=== PATIENT | female | born 1960 | race Hispanic/Latino ===

== ENCOUNTER 2020-03-30 16:51 | Emergency (ER) | payer SELFPAY ==
--- OUTSIDE RECORDS SUMMARY | 2020-03-30 16:53 | XMS REPORT | Summary of Care ---
:1960 Author Organization [facility] - Health Address [address] [place] [address] Care Team Providers Name Role Phone Fela Burkett MD Primary Care Provider Reason for Visit Reason Comments Notification health maintenance Encounter Details Date Type Department Care Team Description 06/21/2019 Telephone [facility] Wellness Fela Burkett Notification (health and Outreach Grace, MD maintenance) [address] [facility] [address] [place], [place] [phone] Allergies Active Allergy Reactions Severity Noted Date Comments Iodine Rash 02/06/2016 documented as of this encounter (statuses as of 06/21/2019) Medications Medication Sig Dispensed Refills Start Date End Date Status predniSONE 20 mg Take 2 tablets by 10 tablet 0 07/30/2017 Active tabletIndications: mouth daily. Contact dermatitis, unspecified contact dermatitis type, unspecified trigger fexofenadine 180 mg Take 1 tablet by 20 tablet 1 07/06/2018 Active tablet mouth 2 (two) times daily. triamcinolone acetonide Apply to area(s) 15 g 0 07/06/20 18 Active 0.1 % creamIndications: 2 (two) times Contact dermatitis, daily. unspecified contact dermatitis type, unspecified trigger ondansetron (ZOFRAN) 4 Take 1 tablet by 12 tablet 0 01/03/2019 Active mg tabletIndications: mouth every 8 Epigastric pain, Nausea (eight) hours as and vomiting in adult needed for Nausea and Vomiting (N/V). dicyclomine (BENTYL) 20 Take 1 tablet by 20 tablet 0 9 Active mg tabletIndications: mouth 4 (four) Epigastric pain, Nausea times daily. and vomiting in adult clotrimazole-betamethas Apply to area(s) 45 g 1 03/09/20 19 Active one (LOTRISONE) 2 (two) times creamIndications: daily. Vulvar itching documented as of this encounter (statuses as of 06/21/2019) Active Problems Problem Noted Date Obesity (BMI 30-39.9) 03/09/2019 Hypertriglyceridemia 08/25/2016 Vitamin D deficiency 08/25/2016 Low vitamin B12 level 08/25/2016 Tooth pain 08/25/2016 Varicose vein of leg 08/25/2016 Epigastric pain 08/25/2016 documented as of this encounter (statuses as of 06/21/2019) Resolved Problems Problem Noted Date Resolved Date Anal warts 02/06/2016 08/25/2016 Genital warts 02/06/2016 08/25/2016 Well woman exam with routine gynecological exam 02/06/2016 08/25/2016 Need for Tdap vaccination 02/06/2016 08/25/2016 documented as of this encounter (statuses as of 06/21/2019) Immunizations Name Administration Dates Next Due Influenza Virus Vaccine Quad IM 3+ YRS 10/23/2016 Tdap 02/06/2016 documented as of this encounter Social History Tobacco Use Types Packs/Day Years Used Date Never Smoker Smokeless Tobacco: Never Used Alcohol Use Drinks/Week oz/Week Comments No 0 Standard drinks or equivalent 0.0 Occasional Sex Assigned at Date Recorded Not on file Job Start Date Occupation Industry Not on file Not on file Not on file Travel History Travel Start Travel End No recent travel history available. documented as of this encounter Last Filed Vital Signs Not on filedocumented in this encounter Plan of Treatment Health Maintenance Due Date Last Done Comments HEPATITIS C (HCV) SCREEN 1960 Zoster Recombinant Vaccine 2011 (SHINGRIX) (1 of 2) PAP SMEAR 02/05/2019 02/06/2016, 02/06/2016 INFLUENZA VACCINE 07/18/2019 10/23/2016 MAMMOGRAM 02/16/2020 02/15/2019, 12/10/2016, 05/01/2016 DTaP,Tdap,and Td Vaccines (2 02/05/2026 02/06/2016 - Td) COLONOSCOPY 05/14/2026 05/14/2016 PNEUMOCOCCAL 0-64 YEARS Aged Out No longe r eligible based COMBINED SERIES on patient's age to complete this to pic documented as of this encounter Results Not on filedocumented in this encounter
--- OUTSIDE RECORDS SUMMARY | 2020-03-30 16:54 | XMS REPORT | Summary of Care ---
:1960 Author Organization [facility] Address [address] [place] [address] Care Team Providers Name Role Phone Fela Burkett MD Primary Care Provider [phone] Reason for Visit Reason Comments Notification Encounter Details Date Type Department Care Team Description 02/03/2020 Telephone [facility] Orthopaedic Obie Pierson MD Notification Surgery- [place] [address] [facility], [place] [address] [place], [place] [phone] Allergies Active Allergy Reactions Severity Noted Date Comments Iodine Rash 02/06/2016 documented as of this encounter (statuses as of 02/04/2020) Medications Medication Sig Dispensed Refills Start Date [...] as of this encounter (statuses as of 02/04/2020) Active Problems Problem Noted Date Obesity (BMI 30-39.9) 03/09/2019 Hypertriglyceridemia 08/25/2016 Vitamin D deficiency 08/25/2016 Low vitamin B12 level 08/25/2016 Tooth pain 08/25/2016 Varicose vein of leg 08/25/2016 Epigastric pain 08/25/2016 documented as of this encounter (statuses as of 02/04/2020) Resolved Problems Problem Noted Date Resolved Date Anal warts 02/06/2016 08/25/2016 Genital warts 02/06/2016 08/25/2016 Well woman exam with routine gynecological exam 02/06/2016 08/25/2016 Need for Tdap vaccination 02/06/2016 08/25/2016 documented as of this encounter (statuses as of 02/04/2020) Immunizations Name Administration Dates Next Due Influenza [...] PAP SMEAR 02/05/2019 02/06/2016, 02/06/2016 INFLUENZA VACCINE (#1) 2019 10/23/2016 Breast Cancer Screening 02/16/2020 02/15/2019, (MAMMOGRAM) 12/10/2016, 05/01/2016 DTaP,Tdap,and Td Vaccines (2 02/05/2026 02/06/2016 - Td) COLONOSCOPY 05/14/2026 05/14/2016 PNEUMOCOCCAL 0-64 YEARS Aged Out No longe r eligible based COMBINED SERIES on patient's age to complete this to pic documented as of this encounter Results Not on filedocumented in this encounter
--- OUTSIDE RECORDS SUMMARY | 2020-03-30 16:54 | XMS REPORT | Summary of Care ---
:1960 Author Organization [facility] Address [address] [place] [address] Care Team Providers Name Role Phone Fela Burkett MD Primary Care Provider [phone] Reason for Visit Reason Comments Notification Encounter Details Date Type Department Care Team Description 02/03/2020 Telephone [facility] Orthopaedic Obie Pierson MD Notification Surgery- [place] [address] [facility], [place] [address] [place], [place] [phone] Allergies Active Allergy Reactions Severity Noted Date [...]
--- OUTSIDE RECORDS SUMMARY | 2020-03-30 16:54 | XMS REPORT ---
:1960 Author Organization [facility] t Address [address] [place] [address] Care Team Providers Name Role Phone Lashonda Pierson MD Attending Clinician Payers Payer Name Policy Type Policy Number Effective Date Expiration Date S ource Problems This patient has no known problems. Allergies, Adverse Reactions, Alerts This patient has no known allergies or adverse reactions. Medications This patient has no known medications. Procedures This patient has no known procedures. Encounters Start End Encounter Admission Attending Care Care Encounter Source Date/Time Date/Time Type Type Clinicians Facility Department ID 2020-02-03 2020-02-03 Telephone DANIEL Pierson [id number] 00:00:00 00:00:00 [facility] [id number] Surgical [id number] Specialti [id number] [address] Results This patient has no known results.
--- OUTSIDE RECORDS SUMMARY | 2020-03-30 16:54 | XMS REPORT | Summary of Care ---
:1960 Author Organization [facility] - [facility] Address [address] [place] [address] Care Team Providers Name Role Phone Fela Burkett MD Primary Care Provider [phone] Reason for Visit Reason Comments Rx Concern/Question Encounter Details Date Type Department Care Team Description 06/21/[address] [facility] Pediatric Sruthi Burkett Rx Concern/Question and Adult Primary Care- [place] [address] [address] [address] [place] [address] [place] [address] [phone] Allergies Active Allergy Reactions Severity Noted Date Comments Iodine Rash 02/06/2016 documented as of this encounter (statuses as of 06/23/2019) Medications Medication Sig Dispensed Refills Start Date [...] as of this encounter (statuses as of 06/23/2019) Active Problems Problem Noted Date Obesity (BMI 30-39.9) 03/09/2019 Hypertriglyceridemia 08/25/2016 Vitamin D deficiency 08/25/2016 Low vitamin B12 level 08/25/2016 Tooth pain 08/25/2016 Varicose vein of leg 08/25/2016 Epigastric pain 08/25/2016 documented as of this encounter (statuses as of 06/23/2019) Resolved Problems Problem Noted Date Resolved Date Anal warts 02/06/2016 08/25/2016 Genital warts 02/06/2016 08/25/2016 Well woman exam with routine gynecological exam 02/06/2016 08/25/2016 Need for Tdap vaccination 02/06/2016 08/25/2016 documented as of this encounter (statuses as of 06/23/2019) Immunizations Name Administration Dates Next Due Influenza [...] filedocumented in this encounter Plan of Treatment Name Type Priority Associated Diagnoses Order S chedule HCV ANTIBODY LAB Routine Routine general medical Expe cted: 06/23/2019, examination at a health care Expires: 10/23/2019 facility Health Maintenance Due Date Last Done Comments [...] on patient's age to complete this to [facility] documented as of this encounter Results Not on filedocumented in this encounter Visit Diagnoses Diagnosis Routine general medical examination at a health care facility - Primary documented in this encounter
[2020-03-30] MEDS ORDERED: NA CHLORIDE 0.9% 1,000 ML ONE (18:13)
[2020-03-30 18:19] LABS: Urine Blood TRACE (NEG); Urine Glucose NEGATIVE (NEG); Urine Protein NEGATIVE (NEG); Urine Specific Gravity 1.015 (1.005-1.030)
[2020-03-30 18:24] LABS: Absolute Lymphocytes (CBC) 2.9 K/uL (0.7-4.9); Basophils % 1.9 % (0-1.3); Hematocrit 36.6 % (36.0-45.0); Lymphocytes % 31.3 % (15.3-44.8); MPV 8.6 fL (7.6-11.3); RBC Red Blood Cell Count 3.88 M/uL (3.86-4.86)
[2020-03-30 18:40] LABS: ALT/SGPT 20 U/L (12-78); AST/SGOT 13 U/L (15-37); Albumin 3.7 g/dL (3.4-5.0); Alkaline Phosphatase 94 U/L (45-117); BUN Blood Urea Nitrogen 18 mg/dL (7-18); Bicarbonate 31 mmol/L (21-32); Bilirubin Direct < 0.1 mg/dL (0-0.2); Glucose Level 97 mg/dL (74-106); Lipase 161 U/L (73-393); Potassium 3.3 mmol/L (3.5-5.1); Protein, Total 7.8 g/dL (6.4-8.2); Sodium Level 140 mmol/L (136-145)
--- NOTE | 2020-03-30 18:52 | RAD REPORT ---
EXAM DESCRIPTION: CT - Stone Protocol - 03/30/2020 6:30 pm CLINICAL HISTORY: Abdominal pain. COMPARISON: 2011 TECHNIQUE: Computed axial tomography of the abdomen pelvis was obtained without oral or IV contrast. Lack of IV and oral contrast limits evaluation of solid organs, bowel, appendix, and vessels. Sandoval l reformatted images were obtained and reviewed. All CT scans are performed using dose optimization technique as appropriate and may include automated exposure control or mA/KV adjustment according to patient size. FINDINGS: A renal calculus is not seen. An ureteral calculus is not noted. A bladder calculus is not present. Sub centimeter lesion within the liver is too small to characterize by CT criteria. Spleen, pancreas and adrenals appear grossly normal There is no evidence of diverticulitis. Slight anterior subluxation L4 on L5. Small hiatal hernia IMPRESSION: Negative for a genitourinary calculus
[2020-03-30 18:55] LABS: Bilirubin Total < 0.1 mg/dL (0.2-1.0)
[2020-03-30] MEDS ORDERED: KETOROLAC 30 MG/ML INJ ONE (18:59)
--- NOTE | 2020-03-30 19:22 | EDPHYS ---
Physician Documentation [facility] Name: Edith Lees Age: 59 yrs Sex: Female : 1960 Arrival Date: 03/30/2020 Time: 16:55 Bed 15 Private MD: ED Physician Tim Chaudhari HPI: 03/30 17:58 This 59 yrs old Female presents to ER via Ambulatory with complaints of cp Abdominal Pain. 17:58 The patient presents with abdominal pain left side of abdomen and left flank. Onset: cp The symptoms/episode began/occurred 5 day(s) ago. 17:58 Associated signs and symptoms: Pertinent positives: constipation, dysuria, Pertinent cp negatives: blood in stools, diarrhea, fever, vomiting. Historical: - Allergies: 17:02 Iodine; ll1 17:02 "steroids"; ll1 - PMHx: 17:02 UTI; kidney stone; ll1 - PSHx: 17:02 breast reduction; ll1 - Immunization history:: Flu vaccine is not up to date. - Social history:: Patient/guardian denies using alcohol, street drugs, tobacco products. ROS: 18:05 Constitutional: Negative for body aches, chills, fever, poor PO intake. cp 18:05 Eyes: Negative for injury, pain, redness, and discharge. cp 18:05 Cardiovascular: Negative for chest pain. 18:05 Respiratory: Negative for cough, shortness of breath, wheezing. 18:05 Abdomen/GI: Positive for abdominal pain, of the left lower quadrant, Negative for vomiting, diarrhea, constipation. 18:05 : Negative for urinary symptoms. 18:05 Neuro: Negative for altered mental status, headache, weakness. 18:05 All other systems are negative. Exam: 18:10 Constitutional: The patient appears in no acute distress, alert, awake, non-toxic, well cp developed, well nourished. 18:10 Head/Face: Normocephalic, atraumatic. cp 18:10 Eyes: Periorbital structures: appear normal, Conjunctiva: normal, no exudate, no injection, Sclera: no appreciated abnormality, Lids and lashes: appear normal, bilaterally. 18:10 ENT: External ear(s): are unremarkable, Nose: is normal, Mouth: Lips: moist, Oral mucosa: pink and intact, moist, Posterior pharynx: is normal, airway is patent. 18:10 Chest/axilla: Inspection: normal, Palpation: is normal, no crepitus, no tenderness. 18:10 Cardiovascular: Rate: normal, Rhythm: regular. 18:10 Respiratory: the patient does not display signs of respiratory distress, Respirations: normal, no use of accessory muscles, no retractions, labored breathing, is not present, Breath sounds: are clear throughout, no decreased breath sounds. 18:10 Abdomen/GI: Inspection: abdomen appears normal, Bowel sounds: active, all quadrants, Palpation: soft, in all quadrants, moderate abdominal tenderness, in the left lower quadrant, rebound tenderness, is not appreciated, voluntary guarding, is not appreciated, involuntary guarding, is not appreciated. 18:10 Back: CVA tenderness, is absent. 18:10 Skin: no rash present. Vital Signs: 16:59 BP 114 / 72; Pulse 83; Resp 16; Temp 99.2; Pulse Ox 99% ; Weight 73.94 kg; Height 5 ft. ll1 3 in. (160.02 cm); Pain 8/10; 18:18 BP 118 / 60; Pulse 62; Resp 16; Temp 98.2(TE); Pulse Ox 99% on R/A; mh5 16:59 Body Mass Index 28.87 (73.94 kg, 160.02 cm) ll1 MDM: 17:45 Patient medically screened. damir 18:00 Differential diagnosis: diverticulitis, non-specific abd pain, Ureterolithiasis, cp urinary tract infection. 19:20 Data reviewed: vital signs, nurses notes, lab test result(s), radiologic studies, CT cp scan. 19:20 Counseling: I had a detailed discussion with the patient and/or guardian regarding: the cp historical points, exam findings, and any diagnostic results supporting the discharge/admit diagnosis, lab results, radiology results, to return to the emergency department if symptoms worsen or persist or if there are any questions or concerns that arise at home. Response to treatment: the patient's symptoms have markedly improved after treatment, and as a result, I will discharge patient. Special discussion: Based on the patient's Hx, exam, and Dx evaluation, there is no indication for emergent surgery or inpatient Tx. It is understood by the patient/guardian that if the Sx's persist or worsen they need to return immediately for re-evaluation. 03/30 17:52 Order name: Basic Metabolic Panel; Complete Time: 18:56 cp 03/30 18:56 Interpretation: Normal except: K 3.3; GFR 61. cp 03/30 17:52 Order name: CBC with Diff; Complete Time: 18:38 cp 03/30 18:38 Interpretation: Normal except: BASO% 1.9. cp 03/30 17:52 Order name: Hepatic Function; Complete Time: 18:56 cp 03/30 18:57 Interpretation: Normal except: AST 13; BILIT < 0.1; GLOB 4.1; A/G 0.9. cp 03/30 17:52 Order name: Lipase; Complete Time: 18:56 cp 03/30 17:52 Order name: Urine Microscopic Only; Complete Time: 19:48 cp 03/30 19:50 Interpretation: Normal except: URBC 5-10. cp 03/30 18:15 Order name: Urine Dipstick--Ancillary (enter results); Complete Time: 18:38 bd 03/30 18:38 Interpretation: Normal except: UBLD TRACE. cp 03/30 17:52 Order name: IV Saline Lock; Complete Time: 18:18 cp 03/30 17:52 Order name: Labs collected and sent; Complete Time: 19:19 cp 03/30 17:52 Order name: CT Stone Protocol; Complete Time: 18:56 cp 03/30 17:52 Order name: Urine Dipstick-Ancillary (obtain specimen); Complete Time: 18:17 cp 03/30 17:52 Order name: Urine Test (obtain specimen); Complete Time: 19:19 cp Administered Medications: 18:17 Drug: NS 0.9% 1000 ml Route: IV; Rate: 1 bolus; Site: right antecubital; hb 19:44 Follow up: IV Status: Completed infusion ah 18:50 Drug: TORadol - Ketorolac 15 mg Route: IVP; Site: right antecubital; ah 19:29 Drug: Potassium Effervescent Tablet 25 mEq Route: PO; ah 19:44 Follow up: Response: No adverse reaction ah 19:29 Drug: Bentyl 20 mg Route: PO; ah 19:44 Follow up: Response: No adverse reaction Disposition: 03/31 05:40 Co-signature as Attending Physician, Tim Chaudhari MD I agree with the assessment and damir plan of care. Disposition: 03/30/20 19:21 Discharged to Home. Impression: Unspecified abdominal pain. - Condition is Stable. - Discharge Instructions: Abdominal Pain, Adult, Constipation, Adult. - Prescriptions for Bentyl 20 mg Oral Tablet - take 2 tablets by ORAL route every 6 hours As needed; 30 tablet. Miralax 17 gram/dose Oral - take 1 packet by ORAL route once daily dilute powder in 8 ounces of water or juice; 14 packet. - Medication Reconciliation Form, Thank You Letter, Antibiotic Education, Prescription Opioid Use form. - Follow up: Private Physician; When: 2 - 3 days; Reason: Worsening of condition. - Problem is new. - Symptoms have improved. Signatures: Dispatcher [employer] EDMS Tim Chaudhari MD MD cha Page, Corey, TATE YBARRA cp Lori Zamudio, RN RN Chelo Pearl RN RN Brennan Nelson RN RN ll1 Corrections: (The following items were deleted from the chart) 03/30 19:52 19:21 03/30/2020 19:21 Discharged to Home. Impression: Unspecified abdominal pain. Condition is Stable. Forms are Medication Reconciliation Form, Thank You Letter, Antibiotic Education, Prescription Opioid Use. Follow up: Private Physician; When: 2 - 3 days; Reason: Worsening of condition. Problem is new. Symptoms have improved. cp
--- NOTE | 2020-03-30 19:22 | ER ---
Nurse's Notes [facility] Name: Edith Lees Age: 59 yrs Sex: Female : 1960 Arrival Date: 03/30/2020 Time: 16:55 Bed 15 Private MD: Diagnosis: Unspecified abdominal pain Presentation: 03/30 16:59 Chief complaint: Patient states: Left lower abd pain for 1 week, severe pain for a few ll1 hours. + dysuria for 1 month. No fevers. Coronavirus screen: Proceed with normal triage. Patient denies a cough. Patient denies shortness of breath or difficulty breathing. Patient denies measured and/or subjective temperature greater than 100.4F prior to today's visit. Patient denies travel on a cruise ship or to a country the [facility] currently lists as an affected area. Patient denies contact with known and/or suspected case of COVID-19. Ebola Screen: Patient denies travel to an Ebola-affected area in the 21 days before illness onset. Initial Sepsis Screen: Does the patient meet any 2 criteria? No. Patient's initial sepsis screen is negative. Does the patient have a suspected source of infection? No. Patient's initial sepsis screen is negative. Risk Assessment: Do you want to hurt yourself or someone else? Patient reports no desire to harm self or others. Onset of symptoms was March 23, 2020. 16:59 Method Of Arrival: Ambulatory ll1 16:59 Acuity: ADELA 3 ll1 Historical: - Allergies: 17:02 Iodine; ll1 17:02 "steroids"; ll1 - PMHx: 17:02 UTI; kidney stone; ll1 - PSHx: 17:02 breast reduction; ll1 - Immunization history:: Flu vaccine is not up to date. - Social history:: Patient/guardian denies using alcohol, street drugs, tobacco products. Screenin:16 Abuse screen: Denies threats or abuse. Nutritional screening: No deficits noted. hb Tuberculosis screening: No symptoms or risk factors identified. Fall Risk None identified. Assessment: 18:13 General: Appears uncomfortable, Behavior is calm, cooperative, appropriate for age. hb Pain: Complains of pain in left lower quadrant Pain does not radiate. Neuro: Level of Consciousness is awake, alert, Oriented to person, place, time, situation. Cardiovascular: Capillary refill < 3 seconds Patient's skin is warm and dry. Respiratory: Airway is patent Respiratory effort is even, unlabored, Respiratory pattern is regular, symmetrical. GI: Bowel sounds present X 4 quads. Abd is soft and non tender. : Reports burning with urination, urinary frequency, bladder prolapsed 2 days ago. EENT: No signs and/or symptoms were reported regarding the EENT system. Derm: No signs and/or symptoms reported regarding the dermatologic system. Musculoskeletal: No signs and/or symptoms reported regarding the musculoskeletal system. 18:30 Reassessment: pt to CT scan via stretcher. 19:15 Reassessment: Pt states that the medication was effective and she is feeling better. Vital Signs: 16:59 BP 114 / 72; Pulse 83; Resp 16; Temp 99.2; Pulse Ox 99% ; Weight 73.94 kg; Height 5 ft. ll1 3 in. (160.02 cm); Pain 8/10; 18:18 BP 118 / 60; Pulse 62; Resp 16; Temp 98.2(TE); Pulse Ox 99% on R/A; mh5 16:59 Body Mass Index 28.87 (73.94 kg, 160.02 cm) ll1 ED Course: 16:55 Patient arrived in ED. mr 17:01 Triage completed. ll1 17:03 Arm band placed on. ll1 17:42 Tim Carpio PA is PHCP. cp 17:42 Tim Chaudhari MD is Attending Physician. cp 18:05 Lori Zamudio, MARIAELENA is Primary Nurse. hb 18:16 Initial lab(s) drawn, by pa, sent to lab. Urine collected: clean catch specimen, clear. [facility] Inserted saline lock: 22 gauge in right antecubital area, using aseptic technique. Blood collected. 18:17 Patient has correct armband on for positive identification. Bed in low position. Call [facility] light in reach. Side rails up X 1. Warm blanket given. environmental monitoring specialist on. Pulse ox on. NIBP on. 18:17 Urine Microscopic Only Sent. 5 18:18 Basic Metabolic Panel Sent. [facility] 18:18 CBC with Diff Sent. [facility] 18:18 Hepatic Function Sent. [facility] 18:18 Lipase Sent. [facility] 18:30 CT Stone Protocol In Process Unspecified. EDMS 19:51 No provider procedures requiring assistance completed. IV discontinued, intact, bleeding controlled, No redness/swelling at site. Pressure dressing applied. Administered Medications: 18:17 Drug: NS 0.9% 1000 ml Route: IV; Rate: 1 bolus; Site: right antecubital; 19:44 Follow up: IV Status: Completed infusion 18:50 Drug: TORadol - Ketorolac 15 mg Route: IVP; Site: right antecubital; 19:29 Drug: Potassium Effervescent Tablet 25 mEq Route: PO; 19:44 Follow up: Response: No adverse reaction 19:29 Drug: Bentyl 20 mg Route: PO; 19:44 Follow up: Response: No adverse reaction Outcome: 19:21 Discharge ordered by MD. 19:45 Discharged to home ambulatory. 19:45 Condition: good 19:45 Discharge instructions given to patient, Instructed on discharge instructions, follow up and referral plans. medication usage, Demonstrated understanding of instructions, follow-up care, medications, Prescriptions given X 2. 19:52 Patient left the ED. Signatures: Dispatcher [employer] SYLID Tamia Woods Corey, TATE PA Lori Neal, Mary Burnette RN [facility] Chelo Singleton RN RN Brennan Nelson RN RN ll1
[2020-03-30] MEDS ORDERED: POTASSIUM 25 MEQ EFFERV TAB ONE (19:30)
[2020-03-30] MEDS ORDERED: DICYCLOMINE HCL 10 MG CAP ONE (19:30)
[2020-03-30 19:48] LABS: Urine Bacteria <20 /HPF (<20); Urine Culture Reflex Order NOT NEEDED
[2020-03-30 19:57] VITALS: O2SAT 99
[2020-03-30 19:59] VITALS: BP 118/60; TEMP 98.2
== END 2020-03-30 19:52 | disposition home or self-care (01) ==
LOC: ER 16:51
DX: R10.9 Unspecified abdominal pain (principal); K59.00 Constipation, unspecified
CPT/HCPCS: 36415; 74176; 76377; 80048; 80076; 81003; 81015; 83690; 85025; 96361; 96374; 99284; J7030